=== PATIENT | female | born 1975 | race Hispanic/Latino ===

== ENCOUNTER 2018-12-26 12:43 | Emergency (ER) | payer OTHER ==
[2018-12-26 13:37] VITALS: BP 165/79
[2018-12-26] MEDS ORDERED: SOLU-Medrol IV ONE (13:41)
--- NOTE | 2018-12-26 14:20 | Emergency Department Report ---
ED Allergic Reaction HPI - General Chief complaint: Allergic Reaction Stated complaint: ALLERGIC REACTION Time Seen by Provider: 12/26/18 13:40 Source: patient Mode of arrival: Stretcher Limitations: No Limitations - History of Present Illness Initial Comments: 43-year-old female presents to ED with allergic reaction to her lunch. Patient has history of MSG allergy. Was eating a wrap today and developed coughing, throat irritation, rash. Patient administered her own EpiPen. States she is feeling much better at this time. Patient was given 50 mg Benadryl by EMS. MD Complaint: allergic reaction -: hour(s) (1) Exposure: food Symptoms: rash, itching Severity: moderate Treatment Prior to Arrival: benadryl, epinephrine - Related Data Previous Rx's Medication Instructions Recorded Last Taken Type EPINEPHrine [Epipen] 0.3 mg IJ ONCE PRN #1 auto.injct 12/26/18 Unknown Rx predniSONE [Deltasone] 50 mg PO QDAY #5 tab 12/26/18 Unknown Rx Allergies Allergy/AdvReac Type Severity Reaction Status Date / Time diclofenac Allergy Unknown Verified 12/26/18 13:28 naproxen [From Aleve] Allergy Unknown Verified 12/26/18 13:28 sumatriptan [From Imitrex] Allergy Unknown Verified 12/26/18 13:28 swiss food Allergy Unknown Uncoded 12/26/18 13:28 ED Review of Systems ROS: Stated complaint: ALLERGIC REACTION Other details as noted in HPI Comment: All other systems reviewed and negative Respiratory: cough, other (reports sensation of throat closing) Cardiovascular: denies: chest pain Gastrointestinal: denies: nausea, vomiting Skin: rash ED Past Medical Hx - Past Medical History Previous Medical History?: Yes Hx Hypertension: Yes Hx Arthritis: Yes - Surgical History Past Surgical History?: Yes Additional Surgical History: Right arm, Right leg - Social History Smoking Status: Never Smoker Substance Use Type: None - Medications Home Medications: Home Medications Medication Instructions Recorded Confirmed Last Taken Type EPINEPHrine [Epipen] 0.3 mg IJ ONCE PRN #1 auto.injct 12/26/18 Unknown Rx predniSONE [Deltasone] 50 mg PO QDAY #5 tab 12/26/18 Unknown Rx ED Physical Exam - General Limitations: No Limitations General appearance: alert, in no apparent distress - Head Head exam: Present: atraumatic, normocephalic - Eye Eye exam: Present: normal appearance, PERRL, EOMI - ENT ENT exam: Present: normal orophraynx, mucous membranes moist - Neck Neck exam: Present: normal inspection - Respiratory Respiratory exam: Present: normal lung sounds bilaterally. Absent: respiratory distress, wheezes, rales, stridor - Cardiovascular Cardiovascular Exam: Present: regular rate, normal rhythm - GI/Abdominal GI/Abdominal exam: Present: soft. Absent: distended, tenderness - Extremities Exam Extremities exam: Present: normal inspection - Neurological Exam Neurological exam: Present: alert, oriented X3 - Psychiatric Psychiatric exam: Present: normal affect, normal mood - Skin Skin exam: Present: warm, dry, intact, normal color. Absent: rash ED Course Vital Signs 12/26/18 13:34 Pulse Rate 92 H Blood Pressure 165/79 O2 Sat by Pulse 94 Oximetry Critical care attestation.: If time is entered above; I have spent that time in minutes in the direct care of this critically ill patient, excluding procedure time. ED Disposition Clinical Impression: Food allergy Disposition: DC- TO HOME OR SELFCARE Is pt being admited?: No Condition: Stable Instructions: Allergies (ED), Food Allergy (ED) Prescriptions: EPINEPHrine [Epipen] 0.3 mg IJ ONCE PRN #1 auto.injct PRN Reason: Anaphylaxis Referrals: PRIMARY CARE, [Referring] - 3-5 Days [facility] [Provider Group] - 3-5 Days GENI ESCALERA MD [Staff Physician] - 3-5 Days Time of Disposition: 14:22
== END 2018-12-26 14:58 | disposition home or self-care (01) ==
LOC: ED 12:43
DX: T78.1XXA Other adverse food reactions, not elsewhere classified, initial encounter (principal); I10 Essential (primary) hypertension; M19.90 Unspecified osteoarthritis, unspecified site; Z91.018 Allergy to other foods; Z88.6 Allergy status to analgesic agent; Z88.8 Allergy status to other drugs, medicaments and biological substances; X58.XXXA Exposure to other specified factors, initial encounter
CPT/HCPCS: 96374; 99283; J2930

== ENCOUNTER 2019-04-24 13:29 | Emergency (ER) | payer OTHER ==
[2019-04-24] MEDS ORDERED: ASPIRIN 325 MG TAB PO ONE (14:26)
== END 2019-04-24 14:40 | disposition left against medical advice (07) ==
LOC: ED 13:29
DX: R07.89 Other chest pain (principal); Z53.21 Procedure and treatment not carried out due to patient leaving prior to being seen by health care provider

== ENCOUNTER 2021-02-23 13:11 | Emergency (ER) | payer BC, OTHER ==
[2021-02-23] MEDS ORDERED: levETIRAcetam 1000 MG/NS 0.75% 1,000 MG/100 ML BAG IV ONE (13:31)
--- NOTE | 2021-02-23 13:57 | Emergency Department Report ---
ED Seizure HPI - General Chief Complaint: Seizure Stated Complaint: SEIZURE Time Seen by Provider: 02/23/21 13:24 Source: patient, EMS Mode of arrival: Stretcher Limitations: Altered Mental Status - History of Present Illness Initial Comments: 45-year old female with a past medical history of seizures, migraines, hypertension, and asthma presents to the hospital with a seizure while at work. Patient works at the [employer]. She apparently had a seizure witnessed by her coworkers there is an additional seizure in route with EMS. Blood glucose at the scene 133. patient states she has remote history of seizures is not currently on seizure medication. She has been working a lot and very tired. She now complains of having a moderate headache to the top of her head in addition to just feeling tired. She denies nausea, vomiting, focal weakness, or focal numbness patient does take Xanax 0.5 mg nightly and has not missed any doses. Patient denies tongue laceration/biting or urinary incontinence - Related Data Previous Rx's Medication Instructions Recorded Last Taken Type EPINEPHrine [Epipen] 0.3 mg IJ ONCE PRN #1 auto.injct 12/26/18 Unknown Rx predniSONE [Deltasone] 50 mg PO QDAY #5 tab 12/26/18 Unknown Rx HYDROcodone/APAP 5-325 [[place] 1 each PO Q6HR PRN #10 tablet 02/23/21 Unknown Rx 5/325] Ondansetron [Zofran Odt] 4 mg PO Q8HR PRN #20 tab.rapdis 02/23/21 Unknown Rx levETIRAcetam [Keppra TAB] 500 mg PO BID #60 tablet 02/23/21 Unknown Rx Allergies Allergy/AdvReac Type Severity Reaction Status Date / Time diclofenac Allergy Unknown Verified 12/26/18 13:28 naproxen [From Aleve] Allergy Unknown Verified 12/26/18 13:28 sumatriptan [From Imitrex] Allergy Unknown Verified 12/26/18 13:28 albanian food Allergy Unknown Uncoded 12/26/18 13:28 ED Review of Systems ROS: Stated complaint: SEIZURE Other details as noted in HPI Comment: All other systems reviewed and negative ED Past Medical Hx - Past Medical History Previous Medical History?: Yes Hx Hypertension: Yes Hx Arthritis: Yes Hx Seizures: Yes (Hx of, no meds) Additional medical history: Tachycardia - Surgical History Past Surgical History?: Yes Additional Surgical History: Right arm, Right leg, - Social History Smoking Status: Unknown if ever smoked Substance Use Type: None - Medications Home Medications: Home Medications Medication Instructions Recorded Confirmed Last Taken Type EPINEPHrine [Epipen] 0.3 mg IJ ONCE PRN #1 auto.injct 12/26/18 Unknown Rx predniSONE [Deltasone] 50 mg PO QDAY #5 tab 12/26/18 Unknown Rx HYDROcodone/APAP 5-325 [[place] 1 each PO Q6HR PRN #10 tablet 02/23/21 Unknown Rx 5/325] Ondansetron [Zofran Odt] 4 mg PO Q8HR PRN #20 tab.rapdis 02/23/21 Unknown Rx levETIRAcetam [Keppra TAB] 500 mg PO BID #60 tablet 02/23/21 Unknown Rx ED Physical Exam - General Limitations: Altered Mental Status - Other Other exam information: General: No acute distress Head: Atraumatic Eyes: normal appearance ENT: Moist mucous membranes Neck: Normal appearance, no midline tenderness Chest: Clear to auscultation bilaterally CV: Regular rate and rhythm Abdomen: Soft, normal bowel sounds, nontender, nondistended, no rebound or guarding Back: Normal inspection Extremity: Normal inspection, full range of motion Neuro: Tired but easily aroused O x 3, no facial asymmetry, speech clear, no gross motor sensory deficit Psych: Appropriate behavior Skin: No rash ED Course Vital Signs 02/23/21 02/23/21 02/23/21 13:18 13:20 13:31 Temperature 98 F Pulse Rate 94 H 84 94 H Respiratory 22 16 21 Rate Blood Pressure 139/81 Blood Pressure 147/91 [Left] O2 Sat by Pulse 98 95 99 Oximetry 02/23/21 02/23/21 02/23/21 13:45 14:01 14:15 Temperature Pulse Rate 94 H 92 H 91 H Respiratory 22 22 20 Rate Blood Pressure 148/84 160/77 141/51 Blood Pressure [Left] O2 Sat by Pulse 98 98 97 Oximetry 02/23/21 02/23/21 02/23/21 14:30 14:46 15:05 Temperature Pulse Rate 89 89 Respiratory 22 22 Rate Blood Pressure 144/65 132/69 142/76 Blood Pressure [Left] O2 Sat by Pulse 98 98 96 Oximetry 1002/23/21 02/23/21 15:15 17:24 17:30 Temperature Pulse Rate 84 Respiratory 16 Rate Blood Pressure 121/64 139/81 Blood Pressure 124/80 [Left] O2 Sat by Pulse 96 97 96 Oximetry 02/23/21 02/23/21 02/23/21 17:36 19:35 19:45 Temperature Pulse Rate 73 Respiratory 18 Rate Blood Pressure 121/64 124/80 143/81 Blood Pressure [Left] O2 Sat by Pulse 97 94 Oximetry 02/23/21 02/23/21 02/23/21 20:00 20:01 20:15 Temperature Pulse Rate 73 74 Respiratory 20 15 Rate Blood Pressure 142/84 142/84 Blood Pressure [Left] O2 Sat by Pulse 98 95 96 Oximetry 02/23/21 02/23/21 02/23/21 20:31 20:46 21:01 Temperature Pulse Rate 73 72 Respiratory 18 19 16 Rate Blood Pressure 143/81 142/84 143/81 Blood Pressure [Left] O2 Sat by Pulse 95 96 97 Oximetry 02/23/21 02/23/21 02/23/21 21:15 21:31 21:45 Temperature Pulse Rate Respiratory 17 20 17 Rate Blood Pressure 140/77 142/84 142/84 Blood Pressure [Left] O2 Sat by Pulse 96 95 97 Oximetry 02/23/21 02/23/21 22:01 22:15 Temperature Pulse Rate Respiratory 20 19 Rate Blood Pressure 127/75 127/75 Blood Pressure [Left] O2 Sat by Pulse 93 97 Oximetry - Reevaluation(s) Reevaluation #1: 02/23/21 19:00 Patient has been resting throughout ED stay. Received Tylenol for headache. Continues to complain of head pain. Received [place] and IV Zofran for headache and nausea. Patient reexamined at this time. She still seems extremely drowsy. She complains of feeling lightheaded and weak and slightly confused. Vital signs are within normal range. I suspect that this is secondary to patient's multiple seizures. She states she takes tramadol as needed. She is informed to discontinue tramadol due to the risk of decreasing seizure threshold. Patient does not appear awake and stable enough for discharge at this time. She will require signout. ED Medical Decision Making - Lab Data Result diagrams: 02/23/21 14:00 02/23/21 14:00 Lab Results 02/23/21 02/23/21 Range/Units 14:00 14:00 WBC 9.7 (4.5-11.0) K/mm3 RBC 4.16 (3.65-5.03) M/mm3 Hgb 12.7 (10.1-14.3) gm/dl Hct 38.3 (30.3-42.9) % MCV 92 (79-97) fl MCH 31 (28-32) pg MCHC 33 (30-34) % RDW 14.6 (13.2-15.2) % Plt Count 245 (140-440) K/mm3 Lymph % (Auto) 24.0 (13.4-35.0) % [place] % (Auto) 4.7 (0.0-7.3) % Eos % (Auto) 0.9 (0.0-4.3) % Baso % (Auto) 0.5 (0.0-1.8) % Lymph # (Auto) 2.3 (1.2-5.4) K/mm3 [place] # (Auto) 0.5 (0.0-0.8) K/mm3 Eos # (Auto) 0.1 (0.0-0.4) K/mm3 Baso # (Auto) 0.0 (0.0-0.1) K/mm3 Seg Neutrophils % 69.9 (40.0-70.0) % Seg Neutrophils # 6.8 (1.8-7.7) K/mm3 Sodium 139 (137-145) mmol/L Potassium 4.2 (3.6-5.0) mmol/L Chloride 103.3 (98-107) mmol/L Carbon Dioxide 24 (22-30) mmol/L Anion Gap 16 mmol/L BUN 16 (7-17) mg/dL Creatinine 0.6 (0.6-1.2) mg/dL Estimated GFR > 60 ml/min BUN/Creatinine Ratio 27 % Glucose 160 H (65-100) mg/dL Calcium 9.2 (8.4-10.2) mg/dL Magnesium 1.80 (1.7-2.3) mg/dL - EKG Data -: EKG Interpreted by Wi EKG shows normal: sinus rhythm, intervals (QTC 444), QRS complexes (QRS duration 80), ST-T waves (no stemi) Rate: normal (95) - EKG Data When compared to previous EKG there are: previous EKG unavailable - Radiology Data Radiology results: report reviewed CT head/brain wo con INDICATION: seizure. TECHNIQUE: All CT scans at this location are performed using CT dose reduction for ALARA by means of automated exposure control. COMPARISON: None available. FINDINGS: There is no evidence of hemorrhage, hydrocephalus, brain edema, or mass effect/mass lesion. There is overall normal brain formation and brain volume for the patient's age. Ventricular and cisternal/sulcal size is normal for age. The included paranasal sinuses and mastoid air cells are clear. The orbits appear unremarkable. IMPRESSION: 1. No acute intracranial abnormality. - Medical Decision Making 45-year-old female with a remote history of seizures not currently on meds on as needed tramadol and Ativan nightly presents to the hospital with seizure x2 prior to arrival which might have been triggered due to lack of sleep as per damon martinez. CT head and labs unremarkable. Patient treated with IV Keppra. Patient without further seizure activity in the ED but complains of persistent headache which is improving after [place] and persistent nausea and weakness. Addition of Zofran and IV fluids ordered. Patient will need to be signed out to my colleague to reassess for improvement in mental status prior to discharge home. She will be prepped with prescriptions for discharge Critical Care Time: No Critical care attestation.: If time is entered above; I have spent that time in minutes in the direct care of this critically ill patient, excluding procedure time. ED Disposition Clinical Impression: Seizure Disposition: 01 HOME / SELF CARE / HOMELESS Is pt being admited?: No Does the pt Need Aspirin: No Condition: Stable Instructions: Epilepsy, [id number] Additional Instructions: Take the medication as prescribed. Follow-up with your doctor or doctor/clinic provided. Return if symptoms worsen as indicated by your discharge instructions. Stop the tramadol because it may increase your risk of seizures. Prescriptions: levETIRAcetam [Keppra TAB] 500 mg PO BID #60 tablet HYDROcodone/APAP 5-325 [[place] 5/325] 1 each PO Q6HR PRN #10 tablet PRN Reason: Pain Ondansetron [Zofran Odt] 4 mg PO Q8HR PRN #20 tab.rapdis PRN Reason: Nausea And Vomiting Referrals: PRIMARY CARE, [Primary Care Provider] - 3-5 Days BABS DIAZ MD [Staff Physician] - 3-5 Days Forms: Work/School Release Form(ED)
[2021-02-23 14:30] LABS: Basophils % (Auto) 0.5 % (0.0-1.8); Eosinophils # (Auto) 0.1 K/mm3 (0.0-0.4); Eosinophils % (Auto) 0.9 % (0.0-4.3); Hematocrit 38.3 % (30.3-42.9); Hemoglobin 12.7 gm/dl (10.1-14.3); Lymphocytes # (Auto) 2.3 K/mm3 (1.2-5.4); Mean Corpuscular HGB Conc 33 % (30-34); Mean Corpuscular Volume 92 fl (79-97); Monocytes # (Auto) 0.5 K/mm3 (0.0-0.8); Monocytes % (Auto) 4.7 % (0.0-7.3); Platelet Count 245 K/mm3 (140-440); Red Blood Count 4.16 M/mm3 (3.65-5.03); Red Cell Distribution Width 14.6 % (13.2-15.2)
[2021-02-23 14:37] LABS: BUN/Creatinine Ratio 27; Blood Urea Nitrogen 16 mg/dL (7-17); Calcium 9.2 mg/dL (8.4-10.2); Hemolysis Index 53
--- NOTE | 2021-02-23 15:05 | Cat Scan Report ---
CT head/brain wo con INDICATION: seizure. TECHNIQUE: All CT scans at this location are performed using CT dose reduction for ALARA by means of automated e xposure control. COMPARISON: None available. FINDINGS: There is no evidence of hemorrhage, hydrocephalus, brain edema, or mass effect/mass lesion. There is overall normal brain formation and brain volume for the patient's age. Ventricular and cisternal/sulc al size is normal for age. The included paranasal sinuses and mastoid air cells are clear. The orbits appear unremarkable. IMPRESSION: 1. No acute intracranial abnormality. Signer Name: Kevyn Cardoza MD Signed: 02/23/2021 3:01 PM Workstation Name: [id number]
[2021-02-23] MEDS ORDERED: ACETAMINOPHEN 325 MG TAB PO ONE (15:38)
[2021-02-23] MEDS ORDERED: HYDROcodone/ACETAMINOPHEN 5-325 MG TAB PO ONE (17:36)
[2021-02-23] MEDS ORDERED: ONDANSETRON 4 MG/2 ML INJ IV ONE ×2 (17:36→18:56)
[2021-02-23 18:05] LABS: Amphetamine Screen,Urine Negative; Benzodiazepines Screen,Urine Negative; Cannabinoid Screen,Urine Negative; Cocaine Screen,Urine Negative; Methadone Screen,Urine Negative; Opiate Screen,Urine Negative
[2021-02-23] MEDS ORDERED: SODIUM CHLORIDE 0.9% 1000 ML 1,000 ML IV ONE (18:56)
[2021-02-23] MEDS ORDERED: ONDANSETRON 4 MG/2 ML INJ ONE (21:00)
[2021-02-23 22:07] VITALS: BP 127/75
[2021-02-23] MEDS ORDERED: SODIUM CHLORIDE 0.9% 1000 ML 0 ML ONE (22:24)
--- NOTE | 2021-03-02 14:25 | Electrocardiograph Report ---
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
== END 2021-02-23 23:40 | disposition home or self-care (01) ==
LOC: ED 13:11
DX: R56.9 Unspecified convulsions (principal); I10 Essential (primary) hypertension; M19.90 Unspecified osteoarthritis, unspecified site; J45.909 Unspecified asthma, uncomplicated; Z91.018 Allergy to other foods; Z98.890 Other specified postprocedural states; Z79.899 Other long term (current) drug therapy; Z88.8 Allergy status to other drugs, medicaments and biological substances
CPT/HCPCS: 36415; 70450; 80048; 80307; 83735; 85025; 93005; 96361; 96365; 96366; 96375; 96376; 99284; J1953; J2405; J7030